=== PATIENT | female | born 1940 | race Caucasian/White ===

== ENCOUNTER → 2017-08-25 07:58 | Outpatient (CLI) | payer MEDICARE, SELFPAY ==
--- NOTE | 2017-08-25 08:07 | US_ITS ---
STUDY: ULTRASOUND TRANSVAGINAL CLINICAL: Female, 77 years old. Follow-up left ovarian cyst postmenopausal, 3 C-sections. TECHNIQUE: Transvaginal COMPARISON: 04/06/2017 FINDINGS: Normal uterine size measuring 5.3 x 2.2 x 3.7 cm. There is heterogeneous myometrium. Possible 1 cm anterior fibroid.. Endometrium is hyperechoic and 3 mm, contains minimal fluid. There are no endometrial masses, and there is no fluid in the endometrial cavity. Trace endocervical fluid. Right ovary is not visualized. Left ovary measures 5.2 x 4.7 x 2.2 cm with a 5 x 4.7 x 2.2 cm simple cyst. There is no free fluid in the pelvis. Polycystic ovary disease: No. US/Transvaginal Non- IMPRESSION: Age-appropriate uterus. Trace endometrial and endocervical fluid. Simple left ovarian cyst a 5 cm, minimally decreased in size since previous exam. Again if ovarian pathology is considered, MRI pelvis would provide additional detail. Electronically Signed: Lourdes Guan MD at 6:44 EDT , Service support ,
--- NOTE | 2017-08-25 08:07 | US_ITS ---
STUDY: ULTRASOUND TRANSVAGINAL CLINICAL: Female, 77 years old. Follow-up left ovarian cyst postmenopausal, 3 C-sections. TECHNIQUE: Transvaginal COMPARISON: 04/06/2017 FINDINGS: Normal uterine size measuring 5.3 x 2.2 x 3.7 cm. There is heterogeneous myometrium. Possible 1 cm anterior fibroid.. Endometrium is hyperechoic and 3 mm, contains minimal fluid. There are no endometrial masses, and there is no fluid in the endometrial cavity. Trace endocervical fluid. Right ovary is not visualized. Left ovary measures 5.2 x 4.7 x 2.2 cm with a 5 x 4.7 x 2.2 cm simple cyst. There is no free fluid in the pelvis. Polycystic ovary disease: No. US/Pelvic (Non ) IMPRESSION: Age-appropriate uterus. Trace endometrial and endocervical fluid. Simple left ovarian cyst a 5 cm, minimally decreased in size since previous exam. Again if ovarian pathology is considered, MRI pelvis would provide additional detail. Electronically Signed: Lourdes Guan MD at 6:44 EDT , Service support ,
== END ==
DX: N83.209 Unspecified ovarian cyst, unspecified side (principal); D39.10 Neoplasm of uncertain behavior of unspecified ovary
CPT/HCPCS: 36415; 76830; 76856; 86304

== ENCOUNTER → 2017-08-25 09:00 | Outpatient (CLI) | payer MEDICARE, SELFPAY ==
[2017-08-26 09:23] LABS: Cancer Antigen 125 11.4 U/mL (0.0-38.1)
== END ==
DX: D39.10 Neoplasm of uncertain behavior of unspecified ovary (principal)
CPT/HCPCS: 36415; 86304

== ENCOUNTER → 2017-12-10 10:25 | Outpatient (CLI) | payer MEDICARE, SELFPAY ==
--- NOTE | 2017-12-10 10:29 | US_ITS ---
STUDY: ULTRASOUND OF THE FEMALE PELVIS - COMPLETE REASON FOR EXAM: Female, 77 years old. Left lower quadrant pain. History of left ovarian cyst. LMP: The patient is postmenopausal. TECHNIQUE: Transabdominal and Transvaginal TECHNICAL QUALITY: Adequate. COMPARISON: Comparison is made with prior examination dated August 25, 2017. FINDINGS: The uterus is anteverted and is in a midline position. The uterus measures 5.5 cm x 3.8 cm x 2.2 cm. Normal uterine cervix. The endometrium measures 2.0 mm in thickness, and is hyperechoic. There is no demonstrated endometrial mass. There is no demonstrated myometrial mass. I.U.D. - The patient does not have an I.U.D. The right ovary is non-visualized. The left ovary is visualized. The left ovary measures 4.7 cm x 5.5 cm x 2.0 cm. There is a 4.4 cm x 5.4 cm x 2.0 cm simple cyst in the left ovary. This is essentially unchanged. There is no visualized left adnexal mass or complex lesion. There is normal arterial and normal venous vascularity. There is no fluid in the cul-de-sac. The pre void volume of the bladder was 38.6 ml. Polycystic ovary disease: No. US/Pelvic (Non ) IMPRESSION: Stable 4.4 cm x 5.4 cm x 2.0 cm simple cyst in the left ovary. Electronically Signed: Klaus Cosby MD at 13:49 EDT Tel [phone], Service support ,
--- NOTE | 2017-12-10 10:58 | US_ITS ---
STUDY: ULTRASOUND OF THE FEMALE PELVIS - COMPLETE REASON FOR EXAM: Female, 77 years old. Left lower quadrant pain. History of left ovarian cyst. LMP: The patient is postmenopausal. TECHNIQUE: Transabdominal and Transvaginal TECHNICAL QUALITY: Adequate. COMPARISON: Comparison is made with prior examination dated August 25, 2017. FINDINGS: The uterus is anteverted and is in a midline position. The uterus measures 5.5 cm x 3.8 cm x 2.2 cm. Normal uterine cervix. The endometrium measures 2.0 mm in thickness, and is hyperechoic. There is no demonstrated endometrial mass. There is no demonstrated myometrial mass. I.U.D. - The patient does not have an I.U.D. The right ovary is non-visualized. The left ovary is visualized. The left ovary measures 4.7 cm x 5.5 cm x 2.0 cm. There is a 4.4 cm x 5.4 cm x 2.0 cm simple cyst in the left ovary. This is essentially unchanged. There is no visualized left adnexal mass or complex lesion. There is normal arterial and normal venous vascularity. There is no fluid in the cul-de-sac. The pre void volume of the bladder was 38.6 ml. Polycystic ovary disease: No. US/Transvaginal Non- IMPRESSION: Stable 4.4 cm x 5.4 cm x 2.0 cm simple cyst in the left ovary. Electronically Signed: Klaus Cosby MD at 13:49 EDT Tel [phone], Service support ,
== END ==
PROVIDERS: Visit Provider Obstetrics & Gynecology
DX: D39.12 Neoplasm of uncertain behavior of left ovary (principal)
CPT/HCPCS: 76830; 76856

== ENCOUNTER → 2018-08-23 10:31 | Outpatient (CLI) | payer MEDICARE, SELFPAY ==
--- NOTE | 2018-08-23 10:35 | US_ITS ---
STUDY: ULTRASOUND TRANSVAGINAL CLINICAL: Female, 78 years old. History of left ovarian cyst, postmenopausal, prior C-sections. TECHNIQUE: Transvaginal (Transvaginal imaging erformed for enhanced visualization of uterus and endometrium, and posterior adnexal structures). COMPARISON: 12/10/2017, 08/25/2017, 12/17/2016.. FINDINGS: The uterus measures 5.3 x 3.9 x 2.0 cm, anteverted position, heterogeneous myometrial echotexture with one identified fibroid measuring approximately 5 mm. Endometrial thickness 3 mm, normal echotexture. Trace fluid in the lower uterine segment and endocervical canal. Right ovary measures 21 x 21 x 10 mm, normal echotexture and vascularity. There is no right adnexal mass, suspicious cyst or free fluid. Left ovary measures 55 x 50 x 32 mm, containing a simple appearing cyst which is thin-walled and centrally anechoic measuring 47 x 40 x 24 mm. There is no left adnexal mass or complex cyst or free fluid. No cul-de-sac free fluid. US/Transvaginal Non- IMPRESSION: Small uterine fibroids. Normal endometrial stripe thickness and echotexture. Trace fluid lower uterine segment endometrial canal, endocervical canal, nonspecific. Correlate for any evidence of dysfunctional uterine bleeding. Simple appearing left ovarian cyst, no significant change in size compared to prior CT imaging of 12/17/2016, favoring benignity. Electronically Signed: Josh Flores MD at 11:24 EDT Tel , Service support ,
== END ==
PROVIDERS: Referring Provider Obstetrics & Gynecology; Visit Provider Obstetrics & Gynecology
DX: N83.209 Unspecified ovarian cyst, unspecified side (principal)
CPT/HCPCS: 76830

== ENCOUNTER → 2018-11-09 | Outpatient (CLI) | payer MEDICARE, SELFPAY ==
--- NOTE | 2018-11-09 09:10 | US_ITS ---
STUDY: ULTRASOUND TRANSVAGINAL CLINICAL: Female, 78 years old. Endometrial fluid TECHNIQUE: Transvaginal COMPARISON: Previous study of August 23, 2018 FINDINGS: Normal uterine size measuring 5.8 cm in maximal craniocaudal dimension. At least 2 uterine fibroids are noted, measuring 6 x 6 x 4 mm and 5 x 7 x 5 mm. Scattered uterine calcific areas are noted which may represent vascular calcifications. Normal endometrial thickness measuring 3 mm. There is fluid in the endometrial canal. Fluid is also seen in the endocervical canal. Normal right ovary, measuring 1.8 x 1.8 x 1.0 cm. Normal left ovary, measuring 5.6 x 4.4 x 3.2 cm. There is a left ovarian cyst measuring 4.9 x 4.0 x 3.0 cm. There is no free fluid in the pelvis. Polycystic ovary disease: No. US/Transvaginal Non- IMPRESSION: Fluid demonstrated in the endometrial and endocervical canals. At least 2 uterine fibroids are noted. 2 of these fibroids measure 6 x 6 x 4 mm and 5 x 7 x 5 mm respectively. There is a left ovarian cyst measuring 4.9 x 4.0 x 3.0 cm. Electronically Signed: Troy Lora MD at 23:28 EDT , Service support ,
== END | disposition home or self-care (01) ==
PROVIDERS: Referring Provider Obstetrics & Gynecology; Visit Provider Obstetrics & Gynecology
DX: N85.8 Other specified noninflammatory disorders of uterus (principal); R10.84 Generalized abdominal pain
CPT/HCPCS: 76830